=== PATIENT | male | born 1980 | race Caucasian/White ===

== ENCOUNTER 2022-06-01 15:09 | Emergency (ER) | payer SELFPAY ==
[2022-06-01] MEDS ORDERED: Bupivacaine 0.25% 10 ML SDV INJECT ONE (20:38)
[2022-06-01] MEDS ORDERED: Lidocaine 1% 5 ML VIAL INJECT ONE (20:38)
[2022-06-01] MEDS ORDERED: Sulfamethoxazole/Trimethoprim 800-160 MG Tab PO STA (20:40)
[2022-06-01] MEDS ORDERED: Ketorolac 60 MG/2 ML SDV IM ONE (20:46)
== END 2022-06-01 22:30 | disposition home or self-care (01) ==
LOC: MW.ED 15:09
DX: L02.212 Cutaneous abscess of back [any part, except buttock and flank] (principal)
CPT/HCPCS: 10060; 96372; 99282; A9270; J1885; J3490; 99283

== ENCOUNTER 2022-06-03 09:57 | Emergency (ER) | payer SELFPAY ==
[2022-06-03] MEDS ORDERED: Ondansetron 4 MG Tab.DIS PO ONE (10:43)
[2022-06-03] MEDS ORDERED: Lidocaine 1% 5 ML VIAL INJECT ONE (10:43)
[2022-06-03] MEDS ORDERED: HYDROmorphone 1 MG/ML Syringe IM ONE (10:43)
[2022-06-03] MEDS ORDERED: Bupivacaine 0.25% 10 ML SDV INJECT ONE (10:44)
== END 2022-06-03 11:40 | disposition home or self-care (01) ==
LOC: MW.ED 09:57
DX: L02.212 Cutaneous abscess of back [any part, except buttock and flank] (principal); Z79.899 Other long term (current) drug therapy
CPT/HCPCS: 10060; 96372; 99282; A9270; J1170; J3490; 99283

== ENCOUNTER 2023-05-01 15:04 | Emergency (ER) | payer OTHER ==
[2023-05-01] MEDS ORDERED: Sodium Chloride 0.9% 1,000 ML IV ONE ×2 (15:24→16:46)
[2023-05-01] MEDS ORDERED: Ketorolac 30 MG/ML SDV IVPUSH ONE (15:24)
[2023-05-01 16:16] LABS: BASOPHILS PERCENT AUTO 0.3 % (0.0-1.5); EOSINOPHILS ABSOLUTE AUTO 0.1 K/uL (0.0-0.7); EOSINOPHILS PERCENT AUTO 1.2 % (0.0-7.0); HEMATOCRIT 44.9 % (38.0-50.0); LYMPHOCYTES ABSOLUTE AUTO 3.1 K/uL (0.6-2.4); LYMPHOCYTES PERCENT AUTO 47.4 % (16.0-40.0); MEAN CORPUSCULAR HEMOGLOBIN 31.1 pg (27.0-32.0); MEAN CORPUSCULAR HGB CONC 33.4 g/dL (31.0-37.0); MONOCYTES ABSOLUTE AUTO 0.4 K/uL (0.0-0.8); MONOCYTES PERCENT AUTO 6.7 % (0.0-15.0); NEUTROPHILS ABSOLUTE AUTO 2.9 K/uL (1.4-5.7); NEUTROPHILS PERCENT AUTO 44.4 % (48.0-80.0); NRBC ABSOLUTE 0 K/uL; PLATELET COUNT,PLT 336 K/uL (150-400); RED BLOOD CELL COUNT 4.83 M/uL (4.50-5.90); WHITE BLOOD CELL COUNT,WBC 6.43 K/uL (4.0-11.0)
[2023-05-01 16:35] LABS: A/G RATIO 1.1 (0.9-1.6); ALBUMIN 3.8 g/dL (3.4-5.0); BILIRUBIN TOTAL 0.5 mg/dL (0.2-1.0); CALCIUM 8.3 mg/dL (8.5-10.1); CARBON DIOXIDE,CO2 23.5 mmol/L (21.0-32.0); EST CRCL DRUG DOSING (CG) 113.84 mL/min; MAGNESIUM 2.4 mg/dL (1.8-2.4); POTASSIUM,K 3.5 mmol/L (3.5-5.1); PROTEIN TOTAL,TP 7.2 g/dL (6.4-8.2)
== END 2023-05-01 18:18 | disposition left against medical advice (07) ==
LOC: MW.ED 15:04
DX: T67.5XXA Heat exhaustion, unspecified, initial encounter (principal); M62.82 Rhabdomyolysis; F10.10 Alcohol abuse, uncomplicated; G89.29 Other chronic pain; M54.50 Low back pain, unspecified; Y90.8 Blood alcohol level of 240 mg/100 ml or more
CPT/HCPCS: 36415; 80053; 80307; 82550; 83735; 84484; 85025; 93005; 96361; 96374; 99283; J1885; J7030; 93010; 99284

== ENCOUNTER 2023-05-03 07:45 | Emergency (ER) | payer OTHER ==
[2023-05-03] MEDS ORDERED: Sodium Chloride 0.9% 10 ML Syringe FLUSH PRN (08:52)
[2023-05-03] MEDS ORDERED: Sodium Chloride 0.9% 2.5 ML Syringe FLUSH PRN (08:52)
[2023-05-03 09:02] LABS: APPEARANCE,URINE CLEAR; BILIRUBIN,URINE NEGATIVE (NEGATIVE); COLOR,URINE YELLOW; GLUCOSE,URINE NEGATIVE (NEGATIVE); KETONES,URINE NEGATIVE (NEGATIVE); LEUKOCYTE ESTERASE,URINE NEGATIVE (NEGATIVE); NITRITE,URINE NEGATIVE (NEGATIVE); OCCULT BLOOD,URINE NEGATIVE (NEGATIVE); PH,URINE 5.5 (5.0-8.0); PROTEIN,URINE NEGATIVE (NEGATIVE); UROBILINOGEN,URINE 0.2 EU/dL (<2.0)
[2023-05-03] MEDS ORDERED: Lactated Ringers 1,000 ML IV ONE (09:03)
[2023-05-03 09:10] LABS: BASOPHILS PERCENT AUTO 0.3 % (0.0-1.5); EOSINOPHILS ABSOLUTE AUTO 0.1 K/uL (0.0-0.7); EOSINOPHILS PERCENT AUTO 1.9 % (0.0-7.0); HEMATOCRIT 45.5 % (38.0-50.0); HEMOGLOBIN 15.2 g/dL (13.0-17.0); LYMPHOCYTES ABSOLUTE AUTO 2.1 K/uL (0.6-2.4); LYMPHOCYTES PERCENT AUTO 31.4 % (16.0-40.0); MEAN CORPUSCULAR HGB CONC 33.4 g/dL (31.0-37.0); MEAN CORPUSCULAR VOLUME 92.7 fL (80.0-98.0); MONOCYTES ABSOLUTE AUTO 0.6 K/uL (0.0-0.8); MONOCYTES PERCENT AUTO 9.5 % (0.0-15.0); NEUTROPHILS ABSOLUTE AUTO 3.9 K/uL (1.4-5.7); NEUTROPHILS PERCENT AUTO 56.9 % (48.0-80.0); NRBC ABSOLUTE 0 K/uL; PLATELET COUNT,PLT 343 K/uL (150-400); RED BLOOD CELL COUNT 4.91 M/uL (4.50-5.90); WHITE BLOOD CELL COUNT,WBC 6.76 K/uL (4.0-11.0)
[2023-05-03 09:37] LABS: A/G RATIO 1.1 (0.9-1.6); ALBUMIN 3.7 g/dL (3.4-5.0); BILIRUBIN TOTAL 0.5 mg/dL (0.2-1.0); CALCIUM 9.1 mg/dL (8.5-10.1); CARBON DIOXIDE,CO2 27.4 mmol/L (21.0-32.0); CREATININE 0.8 mg/dL (0.8-1.3); EST CRCL DRUG DOSING (CG) 142.3 mL/min; PROTEIN TOTAL,TP 7.2 g/dL (6.4-8.2)
[2023-05-03 09:39] LABS: CREATINE KINASE,CK 772 U/L (26-308)
[2023-05-03 09:39] LABS: AMPHETAMINES SCREEN, URINE NEGATIVE (CUTOFF=500); BARBITURATE SCREEN,URINE NEGATIVE (CUTOFF=200); BENZODIAZEPINES SCREEN,URINE NEGATIVE (CUTOFF=150); BUPRENORPHINE SCREEN,URINE NEGATIVE (CUTOFF=10); METHADONE SCREEN, URINE NEGATIVE (CUTOFF=200); METHAMPHETAMINES SCREEN, URINE NEGATIVE (CUTOFF=500); OXYCODONE SCREEN,URINE NEGATIVE (CUT0FF=100); PCP SCREEN,URINE NEGATIVE (CUTOFF=25); PROPOXYPHENE SCREEN,URINE NEGATIVE (CUTOFF=300); THC SCREEN,URINE 20 NG/ML NEGATIVE (CUTOFF=50)
[2023-05-03 09:42] LABS: ETHANOL BLOOD MEDICAL < 3.0 mg/dL
== END 2023-05-03 10:40 | disposition home or self-care (01) ==
LOC: MW.ED 07:45
DX: E86.0 Dehydration (principal); M62.82 Rhabdomyolysis; Z87.891 Personal history of nicotine dependence
CPT/HCPCS: 36415; 80053; 80305; 80307; 81003; 82272; 82550; 83690; 85025; 87045; 87046; 87328; 87329; 87338; 87449; 87899; 96360; 99284; J3490; J7120

== ENCOUNTER 2023-05-17 09:41 | Emergency (ER) | payer SELFPAY ==
[2023-05-17] MEDS ORDERED: LORazepam 2 MG/ML SDV IVPUSH ONE (09:53)
[2023-05-17] MEDS ORDERED: Lactated Ringers 1,000 ML IV SCH (10:00)
[2023-05-17 10:03] LABS: BASOPHILS PERCENT AUTO 0.3 % (0.0-1.5); EOSINOPHILS ABSOLUTE AUTO 0.1 K/uL (0.0-0.7); EOSINOPHILS PERCENT AUTO 0.8 % (0.0-7.0); HEMATOCRIT 43.7 % (38.0-50.0); LYMPHOCYTES ABSOLUTE AUTO 2.3 K/uL (0.6-2.4); LYMPHOCYTES PERCENT AUTO 29.1 % (16.0-40.0); MEAN CORPUSCULAR HEMOGLOBIN 31.7 pg (27.0-32.0); MEAN CORPUSCULAR HGB CONC 34.3 g/dL (31.0-37.0); MEAN CORPUSCULAR VOLUME 92.4 fL (80.0-98.0); MONOCYTES ABSOLUTE AUTO 0.7 K/uL (0.0-0.8); MONOCYTES PERCENT AUTO 8.7 % (0.0-15.0); NEUTROPHILS ABSOLUTE AUTO 4.8 K/uL (1.4-5.7); NEUTROPHILS PERCENT AUTO 61.1 % (48.0-80.0); NRBC ABSOLUTE 0 K/uL; PLATELET COUNT,PLT 404 K/uL (150-400); RED BLOOD CELL COUNT 4.73 M/uL (4.50-5.90); WHITE BLOOD CELL COUNT,WBC 7.79 K/uL (4.0-11.0)
[2023-05-17 10:10] LABS: INR 0.97 (0.86-1.11)
[2023-05-17 10:23] LABS: ALBUMIN 3.6 g/dL (3.4-5.0); BILIRUBIN TOTAL 0.2 mg/dL (0.2-1.0); CALCIUM 8.1 mg/dL (8.5-10.1); CARBON DIOXIDE,CO2 28.3 mmol/L (21.0-32.0); CREATININE 1.1 mg/dL (0.8-1.3); EST CRCL DRUG DOSING (CG) 103.49 mL/min; POTASSIUM,K 3.2 mmol/L (3.5-5.1); PROTEIN TOTAL,TP 7.2 g/dL (6.4-8.2); TSH ULTRASENSITIVE 2.33 uIU/mL (0.36-3.74)
== END 2023-05-17 13:38 | disposition home or self-care (01) ==
LOC: MW.ED 09:41
DX: R00.2 Palpitations (principal)
CPT/HCPCS: 36415; 80053; 83690; 83735; 84443; 84484; 85025; 85610; 93005; 96361; 96374; 99285; J2060; J7120; 93010; 99284

== ENCOUNTER 2023-06-24 08:59 | Emergency (ER) | payer OTHER ==
[2023-06-24] MEDS ORDERED: Lidocaine 1% 5 ML VIAL INJECT ONE (09:08)
[2023-06-24] MEDS ORDERED: Lidocaine/Epineph/Tetracaine 3 ML Syringe TOP ONE (09:08)
== END 2023-06-24 10:32 | disposition home or self-care (01) ==
LOC: MW.ED 08:59
DX: S01.511A Laceration without foreign body of lip, initial encounter (principal); Y04.2XXA Assault by strike against or bumped into by another person, initial encounter
CPT/HCPCS: 12011; 99283; A9270; J3490